=== PATIENT | male | born 1965 | race Caucasian/White ===

== ENCOUNTER 2021-02-09 13:38 | Observation (INO) | payer OTHER ==
[~2021-02-09] VITALS: Ht 177.8 cm; Wt 104.6 kg
[~2021-02-09 13:38] MED LIST: FLOMAX0.4 MG PO; GLUCOPHAGE XR500 MG PO; OMEPRAZOLE20 MG PO; VITAMIN D1000 UNIT PO; ZESTRIL40 MG PO
[2021-02-09] MEDS ORDERED: TRULICITY0.75 MG/0. SUB-Q (18:40)
[2021-02-09] MEDS ORDERED: HYDROCHLOROTH12.5 MG PO (18:40)
[2021-02-09] MEDS ORDERED: PRAVASTATIN SOD40 MG PO (18:41)
--- NOTE | 2021-02-09 19:20 | NUR ---
SHIFT REPORT RECEIVED FROM ELISSAKSJUAN COLLADO AT BEDSIDE. TELE#[address], HR TACHY RANGING FROM 118 TO 120'S. pt RESTING IN BED, AWAKE. PUPILS ROUND AND REACTIVE TO LIGHT, HOB ELEVATED. LR INFUSING AT 125MLS/HR, SITE WNL. NO NEEDS VERBALIZED AT THIS TIME, CALL LIGHT IN REACH. BED ALARM ON FOR SAFETY.
--- NOTE | 2021-02-09 20:35 | NUR ---
DR PIERRE ON PHONE ASKING FOR UPDATE. TELE #[address], HR SUSTAINING IN 120'S AT REST, UP TO 150'S WITH AMBULATION. REMAINING VSS. pt ASYMPTOMATIC, DENIES CHEST PAIN AND SOB. DR PIERRE MADE AWARE, NO NEW ORDERS. DISCUSSED LAB FINDINGS FROM AFTERNOON INCLUDING LAST KNOWN LACTIC ACID RESULT OF 3.7. TELEPHONE ORDERS READ BACK FOR MORNING LABS INCLUDING CBC, CMP, LACTIC ACID, CREATINE KINASE, LIPASE, MAGNESIUM, PHOSPHORUS, REPEAT UA, AND REPEAT HEAD CT D/T TEMPORAL SKULL FRACTURE. TELEPHONE ORDERS READ BACK FOR NORCO 10-325 1 [id number] PRN FOR PAIN, SWITCH MAINTENANCE FLUIDS TO D5LR @100/HR, AND NASAL SPRAY, 2 SPRAYS PRN FOR DECONGESTION. PER DR PIERRE, NO NEED FOR REPEAT LACTIC ACID UNTIL MORNING WITH OTHER ORDERED LABS PREVIOUSLY MENTIONED ABOVE. PER DR PIERRE, NO NEED TO NOTIFY HIM OF INCREASED HR UNLESS HR SUSTAINS ABOVE 150.
--- NOTE | 2021-02-09 21:00 | NUR ---
pt REQUESTING ANTACID, CALL MADE TO DR PIERRE. TELEPHONE ORDER READ BACK FOR 20MG PO PRILOSEC BID, IF UNAVAILABLE THEN GIVE 40MG PO PROTONIX BID. pt HAS HISTORY OF DIABETES, DOES NOT CHECK BS AT HOME, TAKES METFORMIN. PER DR PIERRE OKAY TO SWITCH DIET TO 60G ADA DIET, ORDER READ BACK.
--- NOTE | 2021-02-09 22:00 | NUR ---
WALKING PASSED pt ROOM, HR UP TO 160'S, SINUS TACH. PRODUCT CRAFTSMAN JEANCARLOS IN ROOM WITH pt, pt UP TO VOID AND IS RETURNING TO BED. ONCE IN BED, HR QUICKLY RETURNED TO BASELINE, 120'S. pt DENIES CHEST PAIN, SOB. ASYMPTOMATIC, pt EDUCATED ON USE OF URINAL FOR FUTURE VOIDS FOR SAFETY, pt VERBALIZED UNDERSTANDING. BED ALARM ON, CALL LIGHT IN REACH.
--- NOTE | 2021-02-09 22:41 | NUR ---
BED ALARM RINGING, PT HAD ROLLED ONTO THERE SIDE, BED ALARM RESET, PT DENIES FURTHER NEEDS
--- NOTE | 2021-02-10 01:50 | NUR ---
CCU CALLED, HR UP TO 162 WHILE pt IS STANDING NEAR EDGE OF BED AND VOIDING VIA URINAL, pt STATES, "I CAN'T PEE SITTING DOWN". OTHER THAN HR, pt SYMPTOMATIC AND DENIES HEADACHE, DIZZINESS, CHEST PAIN, SOB, AND PALPITATIONS. pt ONLY REPORTS COMPLAINT OF NASAL CONGESTION REPORTED AT START OF SHIFT. HR RETURNS TO UPPER 120'S-LOWER 130'S ONCE RETURNING TO BED. PUPILS ROUND AND REACTIVE TO LIGHT, BLOOD BLISTER NOTED TO RIGHT EYE. IV FLUIDS REMAIN INFUSING PER MD ORDERS, SITE X2 WNL. pt INSTRUCTED TO CALL NURSING STAFF IF ABOVE SYMPTOMS OCCUR, BED ALARM ON FOR SAFETY. CALL LIGHT IN REACH.
--- NOTE | 2021-02-10 01:58 | NUR ---
in to get pt vitals, up at bedside to void with urinal, rn to monitor hr, pt now back in bed
--- NOTE | 2021-02-10 03:48 | NUR ---
pt RESTING IN BED, TELE#[address], HR 103, SINUS TACH. NO DISTRESS NOTED AT THIS TIME, RR REMAINS EVEN AND UNLABORED. CALL LIGHT IN REACH AND BED ALARM ON FOR SAFETY.
--- NOTE | 2021-02-10 04:20 | NUR ---
pt UP AND STANDING TO VOID, TELE#[address], HR UP TO 142. RETURNED TO BASELINE AFTER RETURNING TO BED. pt AGAIN ASYMPTOMATIC AND DENIES CHEST PAIN, HEADACHE, SOB, DIZZINESS, ECT. NO FURTHER NEEDS, CALL LIGHT IN REACH.
--- NOTE | 2021-02-10 05:12 | NUR ---
LAB IN ROOM FOR MORNING BLOOD DRAW, AIDA ANAND ALSO IN ROOM TO COLLECT VS AND I&O'S. CALL LIGHT IN REACH.
--- NOTE | 2021-02-10 05:16 | NUR ---
IN TO GET VITALS, LAB FINISHING UP, ICE WATER REFILLED, NO FURTHER NEEDS AT THIS TIME
--- NOTE | 2021-02-10 05:41 | NUR ---
NEURO ASSESSMENT COMPLETE, pt A/OX4. COMPLIANT WITH CARE, ALARM DID GO OFF WHILE pt WAS SITTING ON EDGE OF BED AND WAS WASHING HANDS WITH WIPES. PUPILS EQUAL, ROUND, AND REACTIVE TO LIGHT. BLOOD BISTER REMAINS NOTED TO RIGHT EYE. pt DENIES HEADACHE, BLURRED VISION. SUELLEN#[address], HR 90'S TO 110 AT REST. CIWA SCORE OF ZERO. BED ALARM ON FOR SAFETY, CALL LIGHT IN REACH.
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
--- NOTE | 2021-02-10 06:05 | NUR ---
LAB CALLED WITH A CK OF 1723 AND STATES THEY ARE RUNNING IT AGAIN AND RESULTS WILL BE AVAILABLE SOON. NOTIFIED PRIMARY ANA SEO.
--- NOTE | 2021-02-10 06:09 | NUR ---
INFORMED BY SILO PAINTERANA OLMOS, CREATINE KINASE RESULT IS 1723 AND IS BEING RE-RAN BY LAB. MORNING MAGNESIUM RESULT OF 1.1. DR PIERRE MADE AWARE OF BOTH, NO NEW ORDERS AT THIS TIME. PER DR PIERRE, HE WILL SEE pt SOON. ALSO MADE AWARE OF pt's NEURO ASSESSMENTS.
--- NOTE | 2021-02-10 06:54 | NUR ---
pt TAKEN TO IMAGING VIA WHEELCHAIR FOR SCHEDULED HEAD CT W/O CONTRAST. IV SITE SALINE LOCKED.
--- NOTE | 2021-02-10 07:20 | NUR ---
SHIFT REPORT FROM CITLALY PEREZ INCLUDED: pt had an uneventful evening, VSS, and pt is now safely independent in the room. 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 it is unclear if Dr Keller has been made aware at this time.
--- NOTE | 2021-02-10 08:30 | NUR ---
CALLED AT THIS TIME called Dr Lr cell at this time. MD did not answer, but an dermatology physician assistant did. the dermatology physician assistant let Dr Kleler know while I was on the phone with her about the pts CK labs. stated that he was already aware of the lab.
[2021-02-10] MEDS ORDERED: TRULICITY1.5 MG/0.5 SUB-Q (09:40)
--- NOTE | 2021-02-10 10:00 | NUR ---
Spoke with Nathan, he states he lives in [place] with his and step son. works, but son will stay home with him. 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 He is retired . Plans on dc to home.
--- NOTE | 2021-02-10 10:00 | NUR ---
ROUNDING pt in chair, denies needds at this time. pt has table and call light within reach.
--- NOTE | 2021-02-10 11:00 | NUR ---
ROUNDING pt anxious to go home. CIWA of 1 at this time. pt denies nausea and reports tolerable 4/10 right lower back pain. pt denies further needs at this time.
--- NOTE | 2021-02-10 12:02 | NUR ---
ROUNDING pt in chair. pt denies needs at this time. table and call light within reach.
--- NOTE | 2021-02-10 12:34 | NUR ---
PT SITTING IN CHAIR-ALERT AND ORIENTED. HE IS IN A GOWN AND BLUE JEANS. PT REQUESTED A SHIRT IF POSSIBLE. HIS WAS CUT OFF. INFORMED RN HEAVEN-SHE WILL FOLLOW UP. GAVE BLESSING AND WILL FOLLOW NEEDED
--- NOTE | 2021-02-10 13:00 | NUR ---
ROUNDING pt anxious to go home. CIWA of 2 at this time. pt denies nausea and reports tolerable 4/10 right lower back pain. pt denies further needs at this time.
--- NOTE | 2021-02-10 14:45 | NUR ---
PATIENT GETTING ANXIOUS ABOUT STAYING HERE TOO LONG pt told this RN and the dispatcher clerk that he doesn't need lunch or dinner since "I'll be gone before dinner". pt reminded that we cannot legally discharge him from the hospital without the MD assessing the safety of his DC and ordering it. pt educated about AMA option, but encouraged to stay and heed the doctors advice. pt currently willing to stay until he can see the MD. pt in chair, table and call light within reach.
--- NOTE | 2021-02-10 15:45 | NUR ---
SPOKE TO DR KELLER AT THIS TIME called Dr Keller at this time. Dr Keller anticipates being able to come visit this pt shortly. pt told, and expecting MD before the end of my shift.
--- NOTE | 2021-02-10 16:39 | NUR ---
PATIENT SITTING UP IN CHAIR. PATIENT REFUSED SHOWER. ALSO ASKED HIM IF HE WANTED ANY LUNCH AND HE SAID NO. HE WAS HOPEING TO GO HOME BEFORE DINNER. THIS MORNING HE DID WASH HIS FACE AND COMB HIS HAIR.
[2021-02-10] MEDS ORDERED: TYLENOL325 MG PO (16:58)
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
== END 2021-02-10 17:15 | disposition home or self-care (01) ==
LOC: ED 13:38 → MS 13:40
PROVIDERS: ADMIT Colon & Rectal Surgery; ATTEND Colon & Rectal Surgery
DX: S06.0X1A Concussion with loss of consciousness of 30 minutes or less, initial encounter (principal); S02.19XA Other fracture of base of skull, initial encounter for closed fracture; S02.40EA Zygomatic fracture, right side, initial encounter for closed fracture; R31.9 Hematuria, unspecified; S30.1XXA Contusion of abdominal wall, initial encounter; S30.0XXA Contusion of lower back and pelvis, initial encounter; S30.811A Abrasion of abdominal wall, initial encounter; S30.810A Abrasion of lower back and pelvis, initial encounter; I10 Essential (primary) hypertension; E78.5 Hyperlipidemia, unspecified; E11.9 Type 2 diabetes mellitus without complications; R79.89 Other specified abnormal findings of blood chemistry; R74.8 Abnormal levels of other serum enzymes; V29.88XA Motorcycle rider (driver) (passenger) injured in other specified transport accidents, initial encounter; Z79.84 Long term (current) use of oral hypoglycemic drugs; Z87.891 Personal history of nicotine dependence; Z20.822 Contact with and (suspected) exposure to COVID-19; Z79.899 Other long term (current) drug therapy
CPT/HCPCS: 70450; 71045; 71260; 72125; 72170; 74177; 80053; 81001; 82150; 82550; 83605; 83690; 85025; 86850; 86900; 86901; 90715; 94762; C9803; J3475; J7030; J7121; Q9967; U0003